=== PATIENT | male | born 1990 | race African-American/Black ===

== ENCOUNTER 2017-07-09 10:00 | Inpatient (IN) | payer OTHER ==
[~2017-07-09] VITALS: Ht 170.2 cm; Wt 71.7 kg
[2017-07-09] VITALS (12 sets, daily range): BP systolic 100–144; BP diastolic 46–83
[~2017-07-09 10:00] MED LIST: NKM; ceFAZolin sod 2 GM in D5W 110 ML IVPB ONE
[2017-07-09] MEDS ORDERED: Thrombin 5000 units TOPIC ONE (10:22)
[2017-07-09] MEDS ORDERED: EPINEPHrine 1mg/1ml Amp ONE (10:23)
[2017-07-09] MEDS ORDERED: Bupivacaine 0.5% Inj 30 ml vial INJ ONE (10:23)
[2017-07-09] MEDS ORDERED: Vancomycin 1gm inj IVPB ONE (10:23)
[2017-07-09] MEDS ORDERED: Bacitracin 50000 Units Vial ONE (10:23)
[2017-07-09] MEDS ORDERED: LR 1000ml 1,000 ML IVLG SCH (11:02)
--- NOTE | 2017-07-09 11:06 | Anethesia Preoperative Eval ---
Anesthesia Pre-op PMH/ROS General Date of Evaluation: Jul 09, 2017 Time of Evaluation: 11:31 Anesthesiologist: Awa ASA Score: ASA 1 Mallampati Score Class I : Soft palate, uvula, fauces, pillars visible Class II: Soft palate, uvula, fauces visible Class III: Soft palate, base of uvula visible Class IV: Only hard plate visible Mallampati Classification: Class I Surgeon: Jacky Diagnosis: Back Pain Surgical Procedure: Let L5-S1 Microdiscetomy, Micodempression Anesthesia History: none Family History: no anesthesia problems Allergies: Uncoded Allergies: SHELLFISH (Allergy, Severe, 07/08/17) DIFFICULTY BREATHING,THROAT ITCHING AND FACE SWOLLEN Medications: see eMAR Anesthesia Pre-op Phys. Exam Physician Exam Last Vital Signs Date Time Temp Pulse Resp B/P (MAP) Pulse Ox O2 Delivery O2 Flow Rate FiO2 07/09/17 10:40 98.2 64 20 130/75 100 Room Air 98.2 Constitutional: NAD Neurologic: CN 2-12 intact Cardiovascular: RRR Respiratory: CTA Gastrointestinal: S/NT/ND Airway Exam Mallampati Score: Class I MO: full ROM: full Teeth: intact Anesthesia Pre-op A/P Risk Assessment & Plan Assessment: ASA 1 Plan: GA, BIS, GlideScope Go Status Change Before Surgery: No Pre-Antibiotics Dru Grams Ancef IV Given Within 1 Hr of Incision: Yes Time Given: 11:39 Adolfo Billings MD Jul 09, 2017 11:06
--- NOTE | 2017-07-09 11:07 | Immediate Post-Op Evaluation ---
Immediate Post-Op Evalulation Immediate Post-Op Evalulation Procedure: Let L5-S1 Microdiscetomy, Micodempression Date of Evaluation: Jul 09, 2017 Time of Evaluation: 14:15 IV Fluids: 800 LR Blood Products: 0 Estimated Blood Loss: 25 Urinary Output: 0 Blood Pressure Systolic: 100 Blood Pressure Diastolic: 46 Pulse Rate: 69 Respiratory Rate: 16 O2 Sat by Pulse Oximetry: 100 Temperature (Fahrenheit): 97.9 Pain Score (1-10): 2 Nausea: No Vomiting: No Complications 0 Patient Status: awake, reacts, patent, extubated, none Hydration Status: adequate Dru Grams Ancef IV Given Within 1 Hr of Incision: Yes Time Given: 11:39 Adolfo Billings MD Jul 09, 2017 11:07
[2017-07-09] MEDS ORDERED: Acetaminophen (Non formulary) 100 ML IV ONE (11:15)
[2017-07-09] MEDS ORDERED: Norco 5mg/325mg tab ORAL PRN ×2 (11:15→16:15)
[2017-07-09] MEDS ORDERED: fentaNYL 100 mcg/2 mL IV PRN (11:15)
[2017-07-09] MEDS ORDERED: HYDROcodone/Acetamin 7.5/325 tab ORAL PRN ×2 (11:15→16:15)
[2017-07-09] MEDS ORDERED: oxyCODONE HCL/Acetaminophen 5/325mg ORAL PRN (11:15)
[2017-07-09] MEDS ORDERED: LORazepam Inj 2mg/ml 1ml IV PRN (11:15)
[2017-07-09] MEDS ORDERED: DiphenhydrAMINE 50mg/ml Inj IVP PRN (11:15)
[2017-07-09] MEDS ORDERED: Hydromorphone 0.5mg/0.5ml inj IVP PRN (11:15)
[2017-07-09] MEDS ORDERED: Ketorolac 30mg Inj IV PRN ×2 (11:15)
[2017-07-09] MEDS ORDERED: Midazolam 2mg/2ml Inj IVP PRN (11:15)
[2017-07-09] MEDS ORDERED: Atropine Inj 1mg/10ml Syr IV PRN (11:15)
[2017-07-09] MEDS ORDERED: Labetalol 5mg/ml 20ml vial IV PRN (11:15)
[2017-07-09] MEDS ORDERED: Dexamethasone 4mg/ml vial ONE (11:30)
[2017-07-09] MEDS ORDERED: NS Irrig 1000ml ONE (11:30)
[2017-07-09] MEDS ORDERED: Lidocaine 1% Plain 30 ml INJ ONE (11:30)
[2017-07-09] MEDS ORDERED: Neostigmine 1mg/ml 10ml Inj ONE (11:30)
[2017-07-09] MEDS ORDERED: Lidocaine 1% MPF 10mg/ml 5ml ONE (11:30)
[2017-07-09] MEDS ORDERED: Propofol 1,000mg/ 100ml btl IV ONE (11:30)
[2017-07-09] MEDS ORDERED: LR 1000ml ONE (11:30)
[2017-07-09] MEDS ORDERED: Sterile Water Irrig 1000ml IRRIG ONE (11:30)
[2017-07-09] MEDS ORDERED: fentaNYL 100 mcg/2 mL IV ONE (11:30)
[2017-07-09] MEDS ORDERED: Glycopyrrolate 0.2mg/ml 1ml Vial ONE (11:30)
[2017-07-09] MEDS ORDERED: Zemuron 50mg/5ml Inj IV ONE (11:30)
[2017-07-09] MEDS ORDERED: Midazolam 2mg/2ml Inj ONE (11:30)
--- NOTE | 2017-07-09 11:30 | Pre-Procedure Note/Attestation ---
Pre-Procedure Note/Attestation Complete Prior to Procedure Procedure Narrative: Left L5-S1 microdecompression and microdiscectomy Indications for Procedure Pre-Operative Diagnosis: Lumbar radiculopathy and hnp Attestation I attest that I discussed the nature of the procedure; its benefits; risks and complications; and alternatives (and the risks and benefits of such alternatives ), prior to the procedure, with the patient (or the patient's legal solar sales representative). I attest that, if there was a reasonable possibility of needing a blood transfusion, the patient (or the patient's legal solar sales representative) was given the [facility] standardized written summary, pursuant to the [place]ural[place] Blood Safety Act ([place] Health and Safety Code # 1645, as amended). I attest that I re-evaluated the patient just prior to the surgery and that there has been no change in the patient's H&P, except as documented below: RODNEY PANIAGUA Jul 09, 2017 11:30
--- NOTE | 2017-07-09 13:44 | Brief Operative Note ---
Immediate Post Operative Note Operative Note Pre-op Diagnosis: Lumbar radiculopathy and hnp Procedure: L L5S1 MICRODECOMPRESSION AND MICRODISCECTOMY Post-op Diagnosis: same as pre-op Findings: consistent w/pre-op dx studies Surgeon: SIVA Mosaicist: CELE Anesthesiologist: GAIL Anesthesia: general Specimen: yes Complications: none Condition: stable Fluids: 800 CC CRYSTALLOID Estimated Blood Loss: minimal - 25CC Drains: none Implant(s) used?: No RODNEY PANIAGUA Jul 09, 2017 13:44
[2017-07-09] MEDS ORDERED: ceFAZolin sod 1 GM in D5W 55 ML IV SCH (14:00)
--- NOTE | 2017-07-09 14:04 | 48 Hour Post Anesthesia Eval ---
Post Anesthesia Evaluation Procedure: Let L5-S1 Microdiscetomy, Micodempression Date of Evaluation: Jul 09, 2017 Time of Evaluation: 16:32 Blood Pressure Systolic: 112 0: 56 Pulse Rate: 67 Respiratory Rate: 18 Temperature (Fahrenheit): 98.2 O2 Sat by Pulse Oximetry: 100 Airway: patent Nausea: No Vomiting: No Pain Intensity: 2 Hydration Status: adequate Cardiopulmonary Status: Stable Mental Status/LOC: patient returned to baseline Follow-up Care/Observations: 0 Post-Anesthesia Complications: 0 Follow-up care needed: ready to discharge Adolfo Billings MD Jul 09, 2017 14:04
[2017-07-09] MEDS ORDERED: HYDROmorphone 1mg/ml Carpuject IVP PRN (16:15)
[2017-07-09] MEDS ORDERED: HYDROmorphone 1mg/ml Carpuject SUBQ PRN (16:15)
[2017-07-09] MEDS ORDERED: Naloxone 0.4mg/ml Inj IVP PRN (16:15)
[2017-07-09] MEDS: Docusate 100mg cap ORAL SCH (18:38)
[2017-07-09] MEDS: D5 1/2NS 1,000 ML IV SCH (18:38)
[2017-07-09] MEDS: ceFAZolin sod 1 GM in D5W 110 ML IV SCH (18:39)
--- NOTE | 2017-07-09 22:15 | Operative Note - Dictated ---
DATE OF OPERATION: 07/09/2017 PREOPERATIVE DIAGNOSES: L5-S1 disk desiccation, retrolisthesis, disk protrusion and stenosis, and left lower extremity radiculopathy. POSTOPERATIVE DIAGNOSES: L5-S1 disk desiccation, retrolisthesis, disk protrusion and stenosis, and left lower extremity radiculopathy. PROCEDURE PERFORMED: 1. Left L5-S1 medial facetectomy, interlaminar laminotomy, foraminotomy, and microdiskectomy. 2. Intraoperative use of microscope. 3. Intraoperative use of fluoroscopy. SURGEON: Luigi Rico M.D. LEAD TRAINER: Ramy Sanches M.D. ANESTHESIA: General endotracheal anesthesia. ANESTHESIOLOGIST: Adolfo Billings M.D. INTRAOPERATIVE FINDINGS: L5-S1 lateral recess and foraminal stenosis with disk protrusion and impingement of the traversing S1 nerve root. ESTIMATED BLOOD LOSS: 25 mL. FLUIDS: 800 mL of crystalloid. INDICATIONS: This is a pleasant gentleman, who had failed non-operative treatment options for above treatment was given. Risks, alternatives, and benefits were discussed with the patient. Risks include, but are not limited to, anesthesia complications including , medical complications including liver, kidney, and cardiopulmonary deficits, bleeding infection, dural tear, CSF leak, nerve root injury, pars fracture, instability, reherniation, and continued symptoms. DESCRIPTION OF OPERATION: The patient was brought into the operating room, supine on the stretcher, subsequently appropriate IV lines were placed, and 2 g of Ancef was administered. Anesthesia was induced and the patient was successfully intubated. Sequential compression devices were placed. The patient was gently turned over on the Myron frame table. A surgical time-out was called. All bony prominences were well padded and the abdomen was assured to lay freely. The L5-S1 interspace was positively identified via preoperative fluoroscopy and an indelible marker was used to rosanne the midline. The patient was prepped and draped in the usual sterile fashion with chlorhexidine scrub, ChloraPrep, and Ioban draping. Me and my greenhouse assistant were prepped and gowned as well. At this point, a vertical incision was carried out over L5-S1 via a #15 scalpel and with monopolar cautery, a subperiosteal dissection of the lamina of S1 and L5 was done on the left side. The lateral joint capsule was well preserved and a radiopaque marker was placed at the pedicle level and the S1 pedicle was identified via lateral fluoroscopy and thus the L5-S1 interspace was positively identified. Once this was completed, a black top roller retractors were set in place and with the use of straight and curved curettes #2 through #5 Kerrison punches, a high-speed drill dental probe, a interlumbar laminotomy, medial facetectomy, and foraminotomy for the exiting left L5 nerve root was done. There was stenosis in the lateral recess the medial aspect of the superior articular facet was removed to decompress the traversing S1 nerve root. At this point, hemostasis was achieved with Gelfoam cautery, FloSeal, bipolar cautery, and a Preston 4 was used to gently retract the neural elements and find the disk space at L5-S1. The nerve root retractor was used to retract the neural elements and the disk protrusion at L5-S1 was found, which was central and left paracentral causing impingement of the cauda equina, thecal sac, and the traversing left S1 nerve root. At this point, a #11 blade was used to make a cruciate incision in the posterior annulus and with the use of a Aguirre rongeur, pituitary rongeur, Peapod rongeur, as well as a dental probe and ST curette, microdiskectomy was accomplished. All loose disk material was removed. There was a herniated fragment that was central and left paracentral, which was removed and disk space irrigation was done multiple times and all loose debris was removed from the inside of the disk. Once this was accomplished, the floor of the canal was flat and a full decompression of the central canal, lateral recess, and foramina was assured. Valsalva at 40 mmHg was done, there was no CSF leak. At this point, attention was diverted to closur, approximately 0.5 grams of vancomycin powder was placed suprafascially and subfascially and the dorsal lumbar fascia was closed with #1 Vicryl sutures in a watertight interrupted fashion. The subdermal and subcuticular layers were closed with 2-0 Vicryl sutures. The skin was closed with Steri-Strips and Dermabond. All sponge, needle, and instrument counts were correct. Sterile dressing tape was placed. The patient was turned supine and extubated in stable condition, was taken to the recovery room in stable condition and found to be neurovascularly intact. Luigi Rico M.D. DR: NINA JOB#: [id number] CC:
[2017-07-10] VITALS: BP 118/55
[2017-07-10] MEDS: D5 1/2NS 1,000 ML IV SCH (02:46)
[2017-07-10] MEDS: ceFAZolin sod 1 GM in D5W 110 ML IV SCH ×2 (02:47→11:50)
[2017-07-10 06:53] VITALS: BP 106/59
[2017-07-10] MEDS: HYDROcodone/Acetamin 7.5/325 tab ORAL PRN ×2 (06:57→10:10)
[2017-07-10 08:00] VITALS: BP 95/57
[2017-07-10] MEDS: Docusate 100mg cap ORAL SCH (09:00)
[2017-07-10] MEDS ORDERED: NORCO 5-325 TA1 EACH ORAL (10:31)
[2017-07-10] MEDS ORDERED: NAPROSYN500 M1 ORAL (10:34)
[2017-07-10 12:00] VITALS: BP 157/91
[2017-07-10] MEDS ORDERED: D5 1/2NS 1000ml IV ONE (12:29)
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
== END 2017-07-10 12:30 | disposition home or self-care (01) | DRG 520 ==
LOC: SDSOVERFLO 10:00 → 3E 15:00
PROC: 01NB0ZZ Release Lumbar Nerve, Open Approach (ICD-10-PCS; 2017-07-09)
PROC: 0SB40ZZ Excision of Lumbosacral Disc, Open Approach (ICD-10-PCS; principal; 2017-07-09 11:30)
DX: M51.17 Intervertebral disc disorders with radiculopathy, lumbosacral region (principal); M48.07 Spinal stenosis, lumbosacral region; M43.17 Spondylolisthesis, lumbosacral region; Z87.891 Personal history of nicotine dependence
CPT/HCPCS: 87081; 94003; 94150; J2250; J2405; J2710